=== PATIENT | male | born 1985 | race Caucasian/White ===

== ENCOUNTER 2022-08-07 16:09 | Emergency (ER) | payer BC, MEDICAID ==
[~2022-08-07] VITALS: Ht 188 cm; Wt 113.0 kg
[2022-08-07 17:25] LABS: Urine Bacteria NONE SEEN /hpf (None Seen); Urine Blood Negative /uL (Negative); Urine WBC 1 /hpf (0 - 3)
[2022-08-07 18:58] VITALS: BP 143/90
[2022-08-07] MEDS ORDERED: ONDANSETRON ODT 4 MG TAB PO ONE (19:30)
[2022-08-07] MEDS ORDERED: LITH300T5 PO (19:30)
[2022-08-07] MEDS ORDERED: OLAN1TAB7 PO (19:30)
[2022-08-07] MEDS ORDERED: OXYCODONE W/ ACETAMINOPHEN 5/325MG TABLET PO ONE (19:30)
== END 2022-08-07 19:57 | disposition home or self-care (01) ==
LOC: ER 16:09
DX: N50.811 Right testicular pain (principal); Z76.0 Encounter for issue of repeat prescription; J45.909 Unspecified asthma, uncomplicated; Z79.899 Other long term (current) drug therapy
CPT/HCPCS: 76870; 81001; 99284; Q0162